=== PATIENT | female | born 1970 | race Caucasian/White ===

== ENCOUNTER 2016-12-27 06:54 | Inpatient (IN) | payer OTHER ==
[2016-12-24 08:43] VITALS: BMI 24.4
[2016-12-27] MEDS ORDERED: DEXAMETHASONE SOD PHOSPHATE 4 MG/1 ML VIAL ONE ×2 (08:41→11:31)
[2016-12-27] MEDS ORDERED: LIDOCAINE HCL/PF 2% SDV 5ML VIAL ONE (08:41)
[2016-12-27] MEDS ORDERED: ONDANSETRON 4 MG/2 ML VIAL ONE ×2 (08:41→11:31)
[2016-12-27] MEDS ORDERED: PROPOFOL 20 ML ONE (08:41)
[2016-12-27] MEDS ORDERED: ROCURONIUM BROMIDE 50 MG/5 ML VIAL ONE (08:42)
[2016-12-27] MEDS ORDERED: MIDAZOLAM HCL 2 MG/2 ML SINGLE DOSE VIAL ONE (08:42)
[2016-12-27] MEDS ORDERED: DESFLURANE GAS 240 ML BOTTLE IH ONE (08:45)
[2016-12-27] MEDS ORDERED: BUPIVACAINE HCL/PF 0.5% (5MG/ML) 10 ML VIAL ONE (08:51)
[2016-12-27] MEDS ORDERED: PROMETHAZINE HCL 25 MG/1 ML VIAL IVPUSH PRN (09:01)
--- NOTE | 2016-12-27 09:08 | HP ---
History & Physical Update - History History: No Change - Physical Physical: No Change - Assessment Assessment: No Change - Plan Plan: No Change (See written and signed H&P in chart)
[2016-12-27] MEDS ORDERED: ceFAZolin SODIUM 1 GM VIAL ONE (09:15)
[2016-12-27] MEDS ORDERED: ceFAZolin SODIUM 1 GM VIAL IVPB ONE (09:16)
[2016-12-27] MEDS ORDERED: METHYLENE BLUE 1% 10 MG/1 ML VIAL NR ONE (11:00)
[2016-12-27] MEDS ORDERED: oxyCODONE HCL 5 MG TABLET PO PRN (11:49)
--- NOTE | 2016-12-27 11:53 | OP ---
Operative Note - Note: Operative Date: 12/27/16 Pre-Operative Diagnosis: fibroid, pelvic pain, irregular menses Operation: total laparoscopic hysterectomy, bilateral salpingectomy, cystoscopy Findings: fibroid uterus, normal appearing ovaries and fallopian tubes bilaterally Post-Operative Diagnosis: Same as Pre-op Surgeon: Hue Groves Signal Engineer: Frank Thomas Anesthesiologist/ASSISTANT AUDITOR: Michael Bryant Anesthesia: General Estimated Blood Loss (mls): 50 Drains, Volume Out (mls): 500 (clear urine) Fluid Volume Replaced (mls): 1,400 Operative Report Dictated: Yes
[2016-12-27] MEDS ORDERED: BUPIVACAINE HCL/PF 0.5% (5MG/ML) 10 ML VIAL IJ ONE (12:04)
[2016-12-27] MEDS ORDERED: HYDROmorphone HCL CARPU-JECT 2 MG/1 ML DISP.SYRIN ONE ×2 (12:07→13:30)
[2016-12-27] MEDS: HYDROmorphone HCL CARPU-JECT 1 MG/1 ML DISP.SYRIN IVPUSH PRN ×3 (12:15→13:30)
[2016-12-27] MEDS ORDERED: LACTATED RINGERS SOLUTION 1,000 ML IV SCH (13:45)
[2016-12-27] MEDS: HYDROmorphone HCL CARPU-JECT 1 MG/1 ML DISP.SYRIN IVPB PRN ×2 (16:57→20:48)
[2016-12-27] MEDS ORDERED: SUMAtriptan SUCCINATE 50 MG TABLET PO ONE (21:15)
[2016-12-28] MEDS: HYDROmorphone HCL CARPU-JECT 1 MG/1 ML DISP.SYRIN IVPB PRN (01:29)
[2016-12-28] MEDS: SIMETHICONE 80 MG TAB.CHEW (FP) PO PRN ×4 (06:21→18:48)
[2016-12-28] MEDS: IBUPROFEN 600 MG TABLET (FP) PO PRN ×3 (06:21→23:05)
--- NOTE | 2016-12-28 08:27 | PN ---
Progress Note (SOAP) - Subjective History of Present Illness: Patient reports soreness and incisional pain Received dilaudid IV overnight, received oral pain medication this AM. Tolerating solids, without complaints of nausea or vomiting. No ambulation yet. Denies fevers or chills. Denies chest pain, shortness of breath. Vasquez in place, clear urine noted Denies flatus. - Current Medications Current Medications: Active Medications Enoxaparin Sodium (Lovenox -) 40 mg SQ DAILY [facility] Hydromorphone HCl (Dilaudid Injection -) 1 mg IVPB Q4H PRN PRN Reason: PAIN Last Admin: 12/28/16 01:29 Dose: 1 mg Lactated Ringer's (Lactated Ringers Solution) 1,000 mls @ 125 mls/hr IV ASDIR SEDA Last Admin: 12/28/16 01:30 Dose: 125 mls/hr Ibuprofen (Motrin -) 600 mg PO Q6H PRN PRN Reason: FEVER Last Admin: 12/28/16 06:21 Dose: 600 mg Oxycodone HCl (Roxicodone -) 5 mg PO Q4H PRN PRN Reason: PAIN Last Admin: 12/28/16 06:21 Dose: 5 mg Oxycodone HCl (Roxicodone -) 10 mg PO Q4H PRN PRN Reason: PAIN Simethicone (Mylicon -) 80 mg PO QID PRN PRN Reason: GAS Last Admin: 12/28/16 06:21 Dose: 80 mg - Objective Vital Signs: Vital Signs Temperature 98.3 F 12/28/16 06:00 Pulse Rate 92 H 12/28/16 06:00 Respiratory Rate 18 12/28/16 06:00 Blood Pressure 100/57 12/28/16 06:00 O2 Sat by Pulse Oximetry (%) 100 12/27/16 21:53 Constitutional: Yes: Well Nourished, No Distress, Calm Cardiovascular: Yes: Regular Rate and Rhythm Respiratory: Yes: Regular, CTA Bilaterally Gastrointestinal: Yes: Normal Bowel Sounds, Soft, Tenderness (incisional) Extremities: Yes: WNL Edema: No Wound/Incision: Yes: Clean/Dry, Dressing Dry and Intact Psychiatric: Yes: Alert, Oriented Assessment/Plan 46 yo POD # 1 s/p total laparoscopic hysterectomy, bilateral salpingectomy, cystoscopy, doing well 1. Continue routine postoperative care. 2. ID - afebrile, will continue to monitor vital signs. 3. Cardiovascular - No acute issues 4. Pulmonary - Encourage incentive spirometer 5. Hematology - Hemoglobin / Hematocrit pending. Will continue to monitor vital signs of anemia Plan to start lovenox for thromboprophylaxis today 6. Urinary - urine output adequate overnight, bilateral ureteral jets noted on cystoscopy; Creatinine pending Vasquez to be DCd in AM, awaiting patient to void 7. Gastroinestinal - no signs of ileus at this time, continue regular diet 8. Gynecology will follow up pathology 9. Pain - patient reports moderate pain, will start oral medication 10. Anticipate discharge home POD # 1 or 2, discharge planning pending able to ambulate, adequate pain control and urinating without issue.
--- NOTE | 2016-12-28 08:44 | PN ---
Progress Note (short form) - Note Progress Note: Post op day#1.S/P Laproscopic hysterectomy with bilateral salpingectomy and cystoscopy under GA uneventful.Patient stable and c/o pain on left side of the abdomen for which she is on medication.No any anesthesia related problem.Patient DC from the anesthesia care.
[2016-12-28 08:50] LABS: BASOPHIL 0.3 % (0-2.0); EOSINOPHIL 0.4 % (0-4.5); MCH 29.7 pg (25.7-33.7); MCHC 33.4 g/dl (32.0-36.0); MEAN CELL VOLUME 88.8 fl (80-96); MEAN PLT VOLUME 8.5 fl (7.5-11.1); NEUTROPHILS 74.5 % (42.8-82.8); PLATELET COUNT 228 K/MM3 (134-434); RDW 13.6 % (11.6-15.6); WHITE BLOOD COUNT 16.4 K/mm3 (4.0-10.0)
[2016-12-28 08:54] LABS: ANION GAP 9 (8-16); CALCIUM 8.2 mg/dL (8.5-10.1); CO2 29 mmol/L (21-32); CREATININE 0.6 mg/dL (0.55-1.02); GLUCOSE,RANDOM 99 mg/dL (74-106)
--- NOTE | 2016-12-28 09:06 | OP ---
DATE OF OPERATION: 12/27/2016 PREOPERATIVE DIAGNOSIS: Fibroid uterus, pelvic pain, and irregular menses. POSTOPERATIVE DIAGNOSIS: Fibroid uterus, pelvic pain, and irregular menses. SURGERY: Total laparoscopic hysterectomy, bilateral salpingectomy, and cystoscopy. FINDINGS: Fibroid uterus, normal-appearing ovaries and fallopian tubes bilaterally. SURGEON: Hue Groves MD CIRCUITRY NEGATIVE INSPECTOR: Frank Thomas MD ANESTHESIOLOGIST: Michael Bryant MD ANESTHESIA: General anesthesia. ESTIMATED BLOOD LOSS: 50 mL. URINE OUTPUT: Clear urine, 500 mL. FLUIDS GIVEN: 1400 mL. INDICATIONS: Patient is a 46-year-old with history of fibroid uterus, pelvic pain, and irregular periods. She desired definitive surgical treatment. She was counseled regarding risks, benefits, alternatives, and complications of procedure including infection, bleeding, damage to surrounding organs such as bowel, bladder, ureters, injury, conversion to laparotomy. She expressed understanding and was brought to the operating room. DESCRIPTION OF PROCEDURE: When anesthesia was found to be adequate, patient was prepped and draped in a normal sterile fashion, placed in dorsal lithotomy position using Enrique stirrups. A weighted speculum was placed in the superior portion of the patients vagina. The anterior vagina was retracted using a Oro retractor. The uterus was grasped using a single-tooth tenaculum and a medium VCare was placed as a uterine manipulator. Attention was brought to the abdominal cavity. A 5-mm incision was made in the umbilicus, and the peritoneum was entered using a Veress needle, and pneumoperitoneum was achieved to 18 mmHg. Anterior peritoneal placement was confirmed using water drop test. The 5-mm trocar was placed under direct visualization. Survey of the abdominal cavity revealed a fibroid uterus, normal-appearing ovaries and fallopian tubes bilaterally. A 5-mm trocar was placed on the left lower quadrant, left upper quadrant under direct visualization. The 5-mm trocar was also placed on the right lower quadrant. Attention was brought to the left adnexa. The round ligament was identified and ligated using the Harmonic scalpel. A fibroid located in the broad ligament was noted to have adhesions, which were taken down using the Harmonic electrode scalpel. The incision on the broad ligament was extended down to the level of the internal cervical os, and the uterine vessels were skeletonized. The utero-ovarian ligament was also ligated using the Harmonic electrode scalpel. The left uterine vessels were identified and were cauterized using the LigaSure and subsequently ligated using the LigaSure. Attention was brought to the right adnexa. The fallopian tube was isolated using the LigaSure. The right round ligament was transected using the LigaSure, and the broad ligament was entered and was dissected down to the level of the internal os using the LigaSure. The vessels were identified and ligated using the LigaSure. The bladder flap was created using the LigaSure, and good hemostasis was noted. Posteriorly the uterosacral ligaments were also identified and ligated using the LigaSure. The vaginal cuff was then created using the Harmonic electrode scalpel on the VCare cup, and the uterus was removed through the vagina. Given the uterine size, it had to be bivalved to allow for extraction through the vagina. Good hemostasis was noted. The vaginal cuff was closed using a 2-0 V-Loc suture in a running fashion. Pneumoperitoneum was released, and a methylene blue was given IV, and a cystoscopy was performed revealing good flow through bilateral ureteral jets. Attention was brought to the abdominal cavity. Survey of the abdominal cavity revealed no pooling of blood. All instruments were removed from the patients abdomen. Pneumoperitoneum was released. Skin was closed using 4-0 Biosyn in interrupted fashion, and the skin was closed using Dermabond. The patient tolerated the procedure well. Estimated blood loss was 50 mL. Patient was awoken from anesthesia and brought to the recovery room in stable condition. Elzbieta [id number]
[2016-12-28] MEDS: oxyCODONE HCL 5 MG TABLET PO PRN ×4 (11:03→23:05)
[2016-12-28] MEDS: ENOXAPARIN NA (PORCINE) 40 MG/0.4 ML DISP.SYRIN SQ SCH (11:05)
--- NOTE | 2016-12-29 08:48 | DS ---
Physical Exam-DURABLE MEDICAL EQUIPMENT TECHNICIAN Vital Signs: Vital Signs Temperature 97.9 F 12/28/16 22:00 Pulse Rate 77 12/28/16 22:00 Respiratory Rate 18 12/28/16 22:00 Blood Pressure 103/49 12/28/16 22:00 O2 Sat by Pulse Oximetry (%) 95 12/28/16 09:00 Constitutional: Yes: Well Nourished, No Distress, Calm Eyes: Yes: WNL, Conjunctiva Clear HENT: Yes: WNL, Atraumatic, Normocephalic Neck: Yes: WNL, Supple, Trachea Midline Cardiovascular: Yes: WNL, Regular Rate and Rhythm Respiratory: Yes: WNL, Regular, CTA Bilaterally Gastrointestinal: Yes: Normal Bowel Sounds, Soft ...Rectal Exam: Yes: WNL Renal/: Yes: WNL Breast(s): Yes: WNL Musculoskeletal: Yes: WNL Extremities: Yes: WNL Edema: No Integumentary: Yes: WNL Wound/Incision: Yes: Clean/Dry, Well Approximated, Sutures Intact Neurological: Yes: WNL, Alert, Oriented ...Motor Strength: WNL Psychiatric: Yes: WNL, Alert, Oriented Labs: CBC, BMP 12/28/16 07:30 12/28/16 07:30 Discharge Summary Reason For Visit: FIBROIDS UTERUS/PELVIC PAIN/IRREGULAR MENSES Current Active Problems Fibroid (Acute) Pelvic pain (Acute) S/P laparoscopic hysterectomy (Acute) Procedures: Principal: s/p TLH,b/l salpingectomy, cystoscopy Hospital Course: Normal recovery Condition: Good - Instructions Diet, Activity, Other Instructions: Physical activity Resume your normal everyday activity as tolerated no heavy lifting or exercise until seen by your surgeon. You may walk unlimited aarti of and climb stairs. You may resume driving the car when you feel safe and comfortable behind the wheel. No sexual activity as instructed. Wound care If you have a bandage, leave it on, and keep dry for 48-72 hours. After that time discard the outer bandage. If they are tapes on the skin under the out of bandage leave them in place. They will peel off in the next 7 to 10 days. Do Not Peel them off. You may shower the day after surgery. If there are tapes present on the skin, you may shower over them. Diet There are no dietary restrictions. Eat healthy, high-fiber foods. Drink 6 to 8 glasses of liquid each day. This will assist in keeping your bowels are regular. Pain management You may take Tylenol or acetaminophen or Ibuprofen (for example, Motrin, Advil etc.) from my pain prescription medication is ordered should be taken as prescribed for moderate to severe pain. Call MD for any of the following: Severe pain not relieved by medication Fever of 101 or higher Excessive bleeding or drainage on dressing Inability to urinate Referrals: Hue Groves MD [Staff Physician] - Disposition: HOME - Home Medications Comprehensive Discharge Medication List: Ambulatory Orders Amitriptyline HCl [Elavil -] 10 mg PO HS 12/24/16 Escitalopram Oxalate [Lexapro -] 10 mg PO DAILY 12/24/16 Sumatriptan Succinate [Imitrex -] 100 mg PO PRN PRN 12/24/16 Ibuprofen [Motrin -] 600 mg PO QID #60 tablet 12/28/16 Oxycodone HCl/Acetaminophen [Percocet 5-325 mg Tablet -] 1 - 2 tab PO Q6H #20 tab MDD 8 12/28/16
[2016-12-29 08:54] VITALS: BP 109/68; PULSE 85; TEMP 99.4
[2016-12-29] MEDS: IBUPROFEN 600 MG TABLET (FP) PO PRN (09:50)
[2016-12-29] MEDS: ENOXAPARIN NA (PORCINE) 40 MG/0.4 ML DISP.SYRIN SQ SCH (09:50)
--- NOTE | 2016-12-29 16:20 | PATH ---
Surgical Pathology Report Patient Name: ERIKA LOPEZ [facility]. Rec. #: [id number] /Age/Gender: 1970 (Age: 46) / F Account: [id number] Location: [facility] OBS/PULL OUT OPERATOR Taken: 12/27/2016 Received: 12/27/2016 Reported: 12/29/2016 Physicians: Hue Groves Specimen(s) Received UTERUS, CERVIX, BILATERAL TUBES Clinical History Fibroid uterus, pelvic pain, irregular menses Final Diagnosis UTERUS AND CERVIX WITH BILATERAL FALLOPIAN TUBES, HYSTERECTOMY AND BILATERAL SALPINGECTOMY: UTERUS AND CERVIX, 280 GRAMS, WITH LEIOMYOMATA, PROLIFERATIVE ENDOMETRIUM, AND UNREMARKABLE CERVIX. BENIGN BILATERAL FALLOPIAN TUBES PRESENT. Electronically Signed Domenico Gibbs M.D. Gross Description Received in formalin labeled "uterus, cervix, bilateral fallopian tubes," is a 280 g previously opened hysterectomy specimen including a uterus, attached cervix and bilateral attached fallopian tubes. The specimen measures 11 cm from superior to inferior, 8.4 cm from anterior to posterior and 6.0 cm from left to right. The serosa is jennings-mendez with abundant bulging subserosal nodules. The cervix measures 3 cm in length and averages 2.7 cm in diameter. The ectocervix is jennings, smooth and glistening. The endocervix is unremarkable. The endometrial cavity measures 4 cm in length and 1.5 cm from cornu to cornu. The endometrium is red and averages 0.1 cm in thickness. The myometrium displays multiple intramural nodules, measuring up to 4.5 cm in greatest dimension. The cut surface of the subserosal and intramural nodules is jennings, firm to rubbery and displays whorled architecture. The remaining myometrium is jennings-pink and measures up to 4 cm in thickness. The left fimbriated fallopian tube measures 5 cm in length. The outer surface is mendez purple and smooth. Sectioning reveals a hemorrhagic appearing lumen. The right fimbriated fallopian tube measures 5.5 cm in length. The outer surface is sung purple and smooth. Sectioning reveals an unremarkable lumen. Honey Blender sections are submitted in 16 cassettes as follows: 1-anterior cervix; 2-posterior cervix; 8-9-qtmjliui endomyometrium; 1-3-nlrhsavom endomyometrium; 3-1-ywejupdshx nodules; 96-34-xqvgqjnmyf nodules; 13-left fallopian tube fimbria; 14-cross sections of left fallopian tube; 15-right fallopian tube fimbria; 16-cross sections of right fallopian tube. 12/28/201612/28/2016
== END 2016-12-29 10:30 | disposition home or self-care (01) | DRG 519 ==
LOC: JSAMEDAYSX 06:54 → J3W 14:33
PROVIDERS: ADMIT Obstetrics & Gynecology; ATTEND Obstetrics & Gynecology
PROC: 0UT7FZZ Resection of Bilateral Fallopian Tubes, Via Natural or Artificial Opening With Percutaneous Endoscopic Assistance (ICD-10-PCS; 2016-12-27)
PROC: 0TJB8ZZ Inspection of Bladder, Via Natural or Artificial Opening Endoscopic (ICD-10-PCS; 2016-12-27)
PROC: 0UT9FZZ Resection of Uterus, Via Natural or Artificial Opening With Percutaneous Endoscopic Assistance (ICD-10-PCS; principal; 2016-12-27 09:00)
DX: D25.9 Leiomyoma of uterus, unspecified (principal); N92.6 Irregular menstruation, unspecified
CPT/HCPCS: 36415; 80048; 84703; 85025; 86850; 86900; 86901; 88307-TC; 94010; 94760